=== PATIENT | male | born 1965 | race Caucasian/White ===

== ENCOUNTER 2018-02-12 21:11 | Emergency (ER) | payer MEDICAID | END 2018-02-13 01:10 | disposition home or self-care (01) | LOC: FTE 02-13 01:10 | DX: S60.111A Contusion of right thumb with damage to nail, initial encounter (principal); I10 Essential (primary) hypertension; W23.0XXA Caught, crushed, jammed, or pinched between moving objects, initial encounter; Y92.9 Unspecified place or not applicable | CPT/HCPCS: 73140; 99283-25 ==

== ENCOUNTER 2018-03-02 15:31 | Emergency (ER) | payer MEDICAID | END 2018-03-02 18:15 | disposition home or self-care (01) | LOC: FTE 15:31 | DX: S61.303A Unspecified open wound of left middle finger with damage to nail, initial encounter (principal); W26.8XXA Contact with other sharp object(s), not elsewhere classified, initial encounter; Y92.9 Unspecified place or not applicable | CPT/HCPCS: 73140; 99283-25 ==

== ENCOUNTER 2018-04-15 20:06 | Emergency (ER) | payer MEDICAID | END 2018-04-15 22:30 | disposition home or self-care (01) | LOC: FTE 20:06 | DX: S60.462A Insect bite (nonvenomous) of right middle finger, initial encounter (principal); W57.XXXA Bitten or stung by nonvenomous insect and other nonvenomous arthropods, initial encounter; Y92.9 Unspecified place or not applicable | CPT/HCPCS: 99282; Z7502 ==

== ENCOUNTER 2018-11-29 18:05 | Observation (INO) | payer MEDICAID ==
[2018-11-29 18:39] LABS: ADD MAN DIFF? NO
[2018-11-29] MEDS: NITROGLYCERIN (SL) 0.4 MG TAB SL (18:45)
[2018-11-29] MEDS: ASPIRIN 81 MG TAB PO (18:45)
[2018-11-29] MEDS: NITROGLYCERIN 2% 1 GM OINT PKT TD (18:45)
[2018-11-29 18:46] LABS: BASOPHILS % 0.4 % (0.0-2.0); EOSINOPHILS # 0.1 10^3/ul (0.0-0.5); EOSINOPHILS % 2.6 % (0.0-7.0); HEMOGLOBIN 14.2 g/dl (14.0-18.0); LYMPHOCYTES # 0.9 10^3/ul (0.8-2.9); LYMPHOCYTES % 19.9 % (15.0-51.0); MEAN CORPUSCULAR HEMOGLOBIN 28.9 pg (29.0-33.0); MEAN CORPUSCULAR HGB CONC 33.8 g/dl (32.0-37.0); MEAN CORPUSCULAR VOLUME 85.4 fl (82.0-101.0); MONOCYTE # 0.6 10^3/ul (0.3-0.9); MONOCYTES % 13.2 % (0.0-11.0); NEUTROPHIL # 2.9 10^3/ul (1.6-7.5); NEUTROPHILS % 63.5 % (39.0-77.0); PLATELET COUNT 221 10^3/UL (140-415); RED BLOOD COUNT 4.92 10^6/ul (4.70-6.10); RED CELL DISTRIBUTION WIDTH 11.9 % (11.5-14.5)
[2018-11-29 18:46] LABS: WHITE BLOOD COUNT 4.5 10^3/ul (4.8-10.8)
[2018-11-29 19:07] LABS: ANION GAP 8 (5-13); BLOOD UREA NITROGEN 17 mg/dl (7-20); CALCIUM 8.6 mg/dl (8.4-10.2); CARBON DIOXIDE 29 mmol/L (21-31); CHLORIDE 106 mmol/L (97-110); CREATININE 0.72 mg/dl (0.61-1.24); Estimated GFR > 60 mL/min (>60); GLUCOSE 136 mg/dl (70-220); POTASSIUM 3.8 mmol/L (3.5-5.1); SODIUM 143 mmol/L (135-144)
[2018-11-29 19:19] LABS: TROPONIN-I < 0.012 ng/ml (0.000-0.120)
[2018-11-29] MEDS ORDERED: ACETAMINOPHEN 325 MG TAB PO (20:00)
[2018-11-29] MEDS ORDERED: ONDANSETRON 4 MG INJ IV ×2 (20:00→23:30)
[2018-11-29] MEDS ORDERED: GUAIFENESIN 20 MG/ML 5ML CUP PO (23:30)
[2018-11-29] MEDS ORDERED: NACL 0.9% 3 ML SYG IV (23:30)
[2018-11-29] MEDS ORDERED: HYDROCODONE/APAP (5/325) TAB PO (23:30)
[2018-11-29] MEDS ORDERED: NITROGLYCERIN (SL) 0.4 MG TAB SL (23:30)
[2018-11-29] MEDS ORDERED: IBUPROFEN 600 MG TAB PO (23:30)
[2018-11-29] MEDS ORDERED: ACETAMINOPHEN 500 MG TAB PO (23:30)
[2018-11-29] MEDS ORDERED: ALBUTEROL/IPRATROPIUM (NEB) 3 ML AMP HHN (23:30)
[2018-11-30 01:49] LABS: CREATINE KINASE 132 IU/L (23-200)
[2018-11-30 02:03] LABS: CK INDEX 2.1; TROPONIN-I < 0.012 ng/ml (0.000-0.120)
[2018-11-30 02:04] LABS: CK-MB 2.81 ng/ml (0.0-2.4)
[2018-11-30 06:18] LABS: ADD MAN DIFF? NO
[2018-11-30 06:22] LABS: WHITE BLOOD COUNT 5.9 10^3/ul (4.8-10.8)
[2018-11-30 06:22] LABS: BASOPHILS % 0.3 % (0.0-2.0); EOSINOPHILS # 0.1 10^3/ul (0.0-0.5); EOSINOPHILS % 2.2 % (0.0-7.0); HEMOGLOBIN 13.2 g/dl (14.0-18.0); LYMPHOCYTES % 17.7 % (15.0-51.0); MEAN CORPUSCULAR HEMOGLOBIN 28.8 pg (29.0-33.0); MEAN CORPUSCULAR HGB CONC 33.8 g/dl (32.0-37.0); MEAN CORPUSCULAR VOLUME 85.2 fl (82.0-101.0); MEAN PLATELET VOLUME 9.2 fl (7.4-10.4); MONOCYTE # 0.7 10^3/ul (0.3-0.9); MONOCYTES % 11.1 % (0.0-11.0); NEUTROPHILS % 68.5 % (39.0-77.0); PLATELET COUNT 191 10^3/UL (140-415); RED BLOOD COUNT 4.58 10^6/ul (4.70-6.10)
[2018-11-30 06:40] LABS: HEMOGLOBIN A1C 5.2 % (0-5.9)
[2018-11-30 06:56] LABS: TROPONIN-I < 0.012 ng/ml (0.000-0.120)
[2018-11-30 06:57] LABS: CK-MB 2.48 ng/ml (0.0-2.4)
[2018-11-30 07:07] LABS: CK INDEX 2.2; CREATINE KINASE 114 IU/L (23-200)
[2018-11-30 07:13] LABS: ALANINE AMINOTRANSFERASE 33 IU/L (13-69); ALBUMIN 3.5 g/dl (3.3-4.9); ALBUMIN/GLOBULIN RATIO 1.29; ALKALINE PHOSPHATASE 84 IU/L (42-121); ANION GAP 6 (5-13); ASPARTATE AMINO TRANSFERASE 29 IU/L (15-46); BILIRUBIN,INDIRECT 0.7 mg/dl (0-1.1); BILIRUBIN,TOTAL 0.7 mg/dl (0.2-1.3); BLOOD UREA NITROGEN 20 mg/dl (7-20); CALCIUM 8.3 mg/dl (8.4-10.2); CARBON DIOXIDE 28 mmol/L (21-31); CHLORIDE 108 mmol/L (97-110); CHOL/HDL RATIO 3.8 RATIO; CHOLESTEROL 160 mg/dl (100-200); CREATININE 0.61 mg/dl (0.61-1.24); Estimated GFR > 60 mL/min (>60); GLUCOSE 100 mg/dl (70-220); HDL CHOLESTEROL 42 mg/dl (28-71); LDL CHOLESTEROL,CALCULATED 98 mg/dl; MAGNESIUM 2.1 mg/dl (1.7-2.5); POTASSIUM 3.8 mmol/L (3.5-5.1); SODIUM 142 mmol/L (135-144); TOTAL PROTEIN 6.2 g/dl (6.1-8.1); TRIGLYCERIDES 98 mg/dl (0-149)
[2018-11-30] MEDS: ASPIRIN 81 MG TAB PO (08:31)
[2018-11-30] MEDS: LORATADINE 10 MG TAB PO (08:32)
[2018-11-30] MEDS: HYDROCHLOROTHIAZIDE 25 MG TAB PO (08:32)
[2018-11-30] MEDS: HEPARIN 5,000 UNIT/1 ML VIAL SC ×2 (08:40→20:43)
[2018-11-30] MEDS: BACITRACIN 0.5%/ZINC 28.35 GM OINT TOP ×2 (09:00→21:00)
[2018-11-30] MEDS ORDERED: BACITRACIN 0.5%/ZINC 28.35 GM OINT TOP (09:00)
[2018-11-30 17:30] LABS: TROPONIN-I < 0.012 ng/ml (0.000-0.120)
[2018-12-01] MEDS: HYDROCHLOROTHIAZIDE 25 MG TAB PO (08:25)
[2018-12-01] MEDS: LORATADINE 10 MG TAB PO (08:25)
[2018-12-01] MEDS: ASPIRIN 81 MG TAB PO (08:26)
[2018-12-01] MEDS: HEPARIN 5,000 UNIT/1 ML VIAL SC ×2 (08:29→21:22)
[2018-12-01] MEDS: BACITRACIN 0.5%/ZINC 28.35 GM OINT TOP ×2 (08:30→21:00)
[2018-12-01] MEDS: REGADENOSON 0.4 MG/5 ML SYG (12:40)
[2018-12-02] MEDS: HYDROCHLOROTHIAZIDE 25 MG TAB PO (08:54)
[2018-12-02] MEDS: ASPIRIN 81 MG TAB PO (08:55)
[2018-12-02] MEDS: LORATADINE 10 MG TAB PO (08:55)
[2018-12-02] MEDS: HEPARIN 5,000 UNIT/1 ML VIAL SC (08:59)
== END 2018-12-02 11:14 | disposition home or self-care (01) ==
LOC: E/R 18:05 → TEL 19:52
DX: R07.9 Chest pain, unspecified (principal); Z79.82 Long term (current) use of aspirin
CPT/HCPCS: 36415; 71045; 78452; 80048; 80053; 80061; 82550; 82553; 83036; 83735; 84443; 84484; 85025; 93005; 93017; 93306; 99285-25; G0378